=== PATIENT | female | born 1995 | race African-American/Black ===

== ENCOUNTER 2021-02-09 13:09 | Emergency (ER) | payer OTHER, SELFPAY ==
--- NOTE | ~2021-02-09 | XR_ITS ---
EXAMINATION: XR chest 2V DATE: 02/09/2021 13:32 INDICATION: Chest pain, shortness of breath and cough TECHNIQUE: PA and lateral views of the chest were obtained. COMPARISON: None FINDINGS: The lungs are clear with no focal airspace opacities, pulmonary edema, pleural effusion or pneumothor ax. The cardiomediastinal silhouette is normal. Visualized bones and soft tissues are unremarkable. IMPRESSION: 1. Normal chest radiograph. Reviewed, dictated and finalized at location A. ER SCREEN OPERATOR IMPRESSION: 1. Normal chest radiograph.
--- NOTE | 2021-02-09 13:13 | ECG_ITS ---
Measurements Intervals [place] Rate: 79 P: 55 IN: 140 QRS: 38 QRSD: 76 T: 8 QT: 347 QTc: 399 Interpretive Statements SINUS RHYTHM WITH SINUS ARRHYTHMIA NORMAL ECG Electronically Signed On 02-09-2021 13:37:35 OUTSIDE SALES REPRESENTATIVE by Howie Remy D.O.
[2021-02-09 13:15] VITALS: BP 120/79; PULSE 87; RESP 16; TEMP 37.4; O2SAT 97
[2021-02-09 13:41] LABS: Basophils Percent Auto 0.4 % (0.2-1.2); Eosinophils Absolute Auto 0.2 K/mm3 (0-0.3); Eosinophils Percent Auto 2.1 % (0-4.4); Hematocrit 41.4 % (37.0-47.0); Hemoglobin 13.4 g/dL (12.0-15.0); Immature Granulocyte Absolute 0.01 K/mm3 (0.00-0.031); Immature Granulocyte Percent A 0.1 % (0-0.5); Lymphocytes Absolute Auto 2.55 K/mm3 (0.9-3.2); Mean Corpuscular HGB Conc 32.4 g/dl (32-36); Mean Corpuscular Hemoglobin 29.1 pg (26-34); Mean Corpuscular Volume 89.8 fl (80-100); Mean Platelet Volume 9.5 fl (7.4-10.4); Monocytes Absolute Auto 0.4 K/mm3 (0.1-0.6); Monocytes Percent Auto 6.2 % (2.6-8.5); Neutrophils Absolute Auto 3.9 K/mm3 (1.3-6.7); Neutrophils Percent Auto 55.2 % (45.5-73.1); Platelet Count Result 276 k/mm3 (150-375); Red Blood Count 4.61 M/mm3 (4.2-5.4); Red Cell Distribution Width 12.8 % (11.5-14.5); White Blood Count 7.1 K/mm3 (4.5-10.0)
[2021-02-09 13:49] LABS: INR 1.1; Prothrombin Time 13.8 Seconds (11.1-14.7)
[2021-02-09 13:50] LABS: Partial Thromboplastin Time 27.4 SECONDS (22.3-36.8)
[2021-02-09 13:56] LABS: Alanine Aminotransferase 13 U/L (4-35); Alkaline Phosphatase 43 U/L (38-126); Anion Gap 9 mmol/L (8-16); Aspartate Amino Transferase 18 U/L (14-36); Bilirubin,Total 0.3 mg/dL (0.2-1.3); Blood Urea Nitrogen 11 mg/dL (7-17); Calcium 8.7 mg/dL (8.4-10.2); Carbon Dioxide 24 mmol/L (22-30); Chloride 104 mmol/L (98-107); Estimated CRCL calculation 111 ml/min; Estimated Glomerular Filt Rate > 60; Glucose 108 mg/dL (65-110); Lipase 38 U/L (23-300); Potassium 4.1 mmol/L (3.4-5.0); Sodium 137 mmol/L (137-145)
[2021-02-09 14:07] LABS: Troponin I < 0.012 ng/mL (0.000-0.034)
--- NOTE | 2021-02-09 14:30 | ED.CHESTPAIN ---
HPI - Chest Pain General Chief Complaint: Chest Pain Stated Complaint: INT CP [id number] CHEST PRESSURE TODAY Time Seen by Provider: 02/09/21 14:30 Source: patient Mode of arrival: ambulatory Limitations: no limitations History of Present Illness HPI narrative: Patient is a 26-year-old female complain of chest pain, substernal, 4 out of 10, indigestion , nonradiating, intermittent, started after drinking a mixed drink , approximately 3 weeks ago. Patient denies any shortness of breath, abdominal pain, nausea, vomiting, diaphoresis, fever or chills. Review of Systems Review of Systems: All systems reviewed & are unremarkable except as noted in HPI and below Constitutional: Constitutional: Denies body ache(s), Denies chills, Denies excessive sweating, Denies fatigue, Denies fever(s), Denies headache(s), Denies lethargy, Denies malaise, Denies weakness and Denies weight loss Eyes: Eyes: Denies blurry vision, Denies change in vision and Denies loss of vision ENT: Denies dizziness, Denies ear discharge, Denies headache(s), Denies lip swelling, Denies epistaxis, Denies nasal congestion, Denies neck pain, Denies throat swelling and Denies tongue swelling Cardiovascular: Cardiovascular: Denies diaphoresis, Denies rapid heart rate, Denies edema, Denies irregular heart rhythm, Denies lightheadedness, Denies palpitations, Denies dyspnea and Denies dyspnea on exertion Respiratory: Respiratory: Denies chest congestion, Denies cough, Denies hemoptysis, Denies dyspnea and Denies dyspnea on exertion Gastrointestinal: Gastrointestinal: Denies abdominal pain, Denies melena, Denies hematochezia, Denies diarrhea, Denies nausea, Denies vomiting and Denies hematemesis Musculoskeletal: Musculoskeletal: Denies abnormal gait, Denies deformity, Denies joint swelling, Denies limited range of motion, Denies neck pain and Denies numbness Neurologic: Denies Abnormal speech present, Denies abnormal gait, Denies confusion, Denies dizziness, Denies headache(s), Denies focal weakness, Denies loss of vision, Denies numbness, Denies Other visual disturbances, Denies Sensory deficit (Neuro) and Denies weakness Psychiatric: Psychiatric: Denies confusion, Denies depression, Denies auditory hallucinations, Denies homicidal ideation and Denies suicidal ideation Endocrine: Endocrine: Denies cold intolerance, Denies excessive sweating, Denies fatigue, Denies heat intolerance and Denies palpitations Hematologic/Lymphatic: Hematologic/Lymphatic: Denies easy bleeding and Denies easy bruising Allergic/Immunologic: Allergic/Immunologic: Denies lip swelling, Denies throat swelling and Denies tongue swelling PMFSH Comments Past medical history: None Family history: Positive for hypertension, diabetes Social history: Non-smoker no EtOH or drug use Exam Const: General: cooperative, healthy appearing, comfortable, no acute distress, well developed, alert and awake; No confusion Orientation/consciousness: oriented to person, oriented to place, oriented to time, patient oriented x3 and No confusion Limitations: no limitations HENMT: Head: normal to inspection, normocephalic and atraumatic Ears: hearing grossly normal bilaterally, TM normal on the right and TM normal on the left General nose exam: Normal external nose present, Normal nares present and No nasal discharge present Face and sinus: normal facial exam Mouth: Yes Normal oral and palatal mucosa present, Yes lip normal, Yes tongue normal and Yes oropharynx normal Throat: posterior oropharynx normal, tonsils normal and uvula midline Eyes: General: appearance normal, both eyes and all related structures Pupils: Equal, round and reactive pupils present EOM: EOMs intact bilaterally Neck: Neck: normal visual inspection, full ROM, no lymphadenopathy and no meningeal signs Chest: Chest palpation & inspection: normal inspection of the chest Resp: Effort & Inspection: normal respiratory effort, able to speak in complete sentences, no re
== END 2021-02-09 15:38 | disposition home or self-care (01) ==
PROVIDERS: Family Medicine; Emergency Provider Emergency Medicine
DX: R07.89 Other chest pain (principal); I10 Essential (primary) hypertension; E11.9 Type 2 diabetes mellitus without complications
CPT/HCPCS: 36415; 71046; 80053; 83690; 84484; 85025; 85610; 85730; 93005; 99284

== ENCOUNTER 2023-08-23 08:27 | Inpatient (IN) | payer OTHER, SELFPAY ==
[2023-08-23] VITALS (14 sets, daily range): BP systolic 101–160; BP diastolic 53–105; PULSE 50–94; RESP 12–22; TEMP 36.4–37.3; O2SAT 98–100
--- NOTE | ~2023-08-23 | XR_ITS ---
EXAMINATION: XR abdomen/kub 1V DATE: 08/24/2023 19:09 INDICATION: Abdominal pain. TECHNIQUE: A supine view of the abdomen on 2 radiographs was obtained. COMPARISON: CT abdomen and pelvis 08/23/2023 FINDINGS: There are no dilated loops of bowel. There is a small volume of stool in the colon. There i s a left internal ureteral stent in expected position. IMPRESSION: 1. Normal bowel gas pattern. 2. Left internal ureteral stent in expected position. Reviewed, dictated and finalized at location E.
--- NOTE | ~2023-08-23 | CT_ITS ---
EXAMINATION: CT abdomen pelvis w con DATE: 08/23/2023 09:55 INDICATION: Abdominal pain TECHNIQUE: Computed tomography (CT) of the abdomen and pelvis was performed with 100 mL Omnipaque-350 intravenous contrast. Automated exposure control and iterative reconstruction technique were employe d. The dose-length product was 1041.26 mGy-cm. COMPARISON: None FINDINGS: Minimal dependent atelectasis in bilateral lower lobes. Heart size is normal. No pericardial or pleur al effusion. Small sliding-type hiatal hernia. There is diffuse periportal edema at the liver. There is also a minimal amount of perihepatic ascites at the gallbladder fossa and between the liver and th e upper pole of the right kidney. The nondilated gallbladder appears otherwise unremarkable with no w all thickening or pericholecystic inflammatory stranding. Spleen, pancreas and bilateral adrenal glan ds are normal. 2 mm nonobstructing stone in a middle calyx of the normal-appearing right kidney. Ther e are couple 2-3 mm stones in a lower pole calyx of the left kidney along with a pair of additional 2 -3 mm obstructing stones at the left ureterovesicular junction. There is mild left hydroureteronephro sis with a delayed left nephrogram. There is also a small amount of left perinephric fluid. There is prominent scattered colonic diverticulosis without adjacent inflammatory stranding to suggest diverti culitis. Small bowel and retrocecal appendix are normal. Uterus and bilateral adnexa are unremarkable . No abscess or free intraperitoneal gas. No pathologically enlarged abdominal or pelvic lymphadenopa thy. IMPRESSION: 1. Bilateral nephrolithiasis with a pair of obstructing 2-3 mm stones at the left ureterovesicular ju nction with mild left hydronephrosis, small amount of perinephric fluid and delayed left nephrogram. 2. Nonspecific periportal edema the differential for which includes acute pyelonephritis which while not evident by CT imaging could be developing related to ascending urinary tract infection associated with the left hydroureteronephrosis. Correlate with urinalysis. Other causes for periportal edema wo uld include congestive heart failure, acute hepatitis, cholangitis or aggressive fluid resuscitation. Reviewed, dictated and finalized at location A. IMPRESSION: 1. Bilateral nephrolithiasis with a pair of obstructing 2-3 mm stones at the le ft ureterovesicular junction with mild left hydronephrosis, small amount of per inephric fluid and delayed left nephrogram. 2. Nonspecific periportal edema the differential for which includes acute pyelo nephritis which while not evident by CT imaging could be developing related to ascending urinary tract infection associated with the left hydroureteronephrosi s. Correlate with urinalysis. Other causes for periportal edema would include c ongestive heart failure, acute hepatitis, cholangitis or aggressive fluid resus citation.
--- NOTE | ~2023-08-23 | US_ITS ---
EXAMINATION: US abdomen limited DATE: 08/25/2023 07:42 INDICATION: Epigastric pain TECHNIQUE: Multiple grayscale and Doppler ultrasound images of the abdomen were obtained. COMPARISON: None FINDINGS: Pancreas is normal. Liver has normal echogenicity and contour, with a smooth surface. No liver lesion identified. No intrahepatic biliary duct dilation suspected. Portal venous flow was seen in the hepa topetal, normal direction and has normal Doppler waveform. The visualized proximal to mid inferior ve na cava is normal. The gallbladder is normal in appearance. There is no cholelithiasis. The common b ile duct is dilated to 13 mm. No evident choledocholithiasis although the region of the ampulla is pa rtially obscured by shadowing bowel gas. Sonographic Pineda sign was reported as negative by the sono grapher. IMPRESSION: 1. Dilation of the common bile duct to 13 mm but without evident cholelithiasis/choledocholithiasis. Correlate with liver function tests and could consider further evaluation with MRCP as clinically ind icated. Reviewed, dictated and finalized at location A. IMPRESSION: 1. Dilation of the common bile duct to 13 mm but without evident cholelithiasis /choledocholithiasis. Correlate with liver function tests and could consider fu rther evaluation with MRCP as clinically indicated.
--- NOTE | ~2023-08-23 | XR_ITS ---
EXAMINATION: XR stent kub - surgery DATE: 08/23/2023 14:46 INDICATION: Left internal ureteral stent placement TECHNIQUE: Fluoroscopic images from a left internal ureteral stent placement are submitted for review . 15 seconds of fluoroscopy time. 3 fluoroscopic images. FINDINGS: There is a left double-J internal ureteral stent projecting in expected position, with proximal Thornton loop at the level of the renal pelvis and distal loop in the pelvis within the bladder lumen. IMPRESSION: 1. Left internal ureteral stent placement. Please refer to real-time procedural findings for detail s. Reviewed, dictated and finalized at location B. IMPRESSION: 1. Left internal ureteral stent placement. Please refer to real-time procedur al findings for details.
--- NOTE | 2023-08-23 08:38 | ED.ABDPAIN ---
HPI - Abdominal Pain General Chief Complaint: Abdominal Pain Stated Complaint: abd pain Time Seen by Provider: 08/23/23 08:37 History of Present Illness HPI narrative: 28 years old female came to the emergency room by ambulance from home with left flank pain radiating to left lower quadrant wake her up from sleep this morning associated with nausea and frequent vomiting. Patient denies any fever or chills urinary symptoms or vaginal bleeding or discharge. No history of abdominal surgery, Patient denies aggravating or relieving factors. Related Data Allergies Allergy/AdvReac Type Severity Reaction Status Date / Time No Known Allergies Allergy Verified 08/23/23 08:35 Review of Systems Review of Systems: All systems reviewed & are unremarkable except as noted in HPI and below Exam Narrative: General appearance: Well-developed, well-nourished, restless Skin: Normal color Head: Normocephalic, nontraumatic Eyes: Clear conjunctiva ENT: Oropharynx normal, ears normal, nose normal Neck: Supple, nontender Chest and respiratory: Airway patent, no respiratory distress, no accessory muscle use Heart: Regular rate/rhythm Abdomen: Soft, mild diffuse tenderness left flank area, no guarding rebound,, no organomegaly, quiet bowel sounds Vascular: Normal peripheral pulses, normal capillary refill. Musculoskeletal: Normal range of motion, nontender back Neurologic: Alert and oriented ?3, RESOURCE PARAPROFESSIONAL is normal as tested, no gross motor deficit Course Consultations Consultation #1: DR MENDES HE WILL COME TO PICK THE PATIENT UP TO REMOVE THE STONE. Date: 08/23/23 Time: 11:02 Vital Signs Vital signs: Vital Signs Temperature 36.4 C L 08/23/23 08:27 Pulse Rate 50 L 08/23/23 08:27 Respiratory Rate 16 08/23/23 08:27 Blood Pressure 160/105 H 08/23/23 08:27 Pulse Oximetry 99 08/23/23 08:27 Oxygen Delivery Room Air 08/23/23 08:27 Temperature 36.4 C L 08/23/23 08:27 Pulse Rate 88 08/23/23 10:05 Respiratory Rate 16 08/23/23 10:05 Blood Pressure 122/83 08/23/23 10:05 Pulse Oximetry 98 08/23/23 10:05 Oxygen Delivery Room Air 08/23/23 08:27 MDM - Abdominal Pain MDM Narrative Medical decision making narrative: Differential diagnosis pyelonephritis, kidney stone, constipation, colitis, diverticulitis, Blood workup today showed insignificant abnormality, urinalysis showed 1+ leukocyte Estrace, positive blood, WBC of 20 1-50, 3+ urine bacteria. The urinalysis indicating infection CT abdomen and pelvis with IV contrast showed 2-3 mm obstructing stone at the left UVJ with mild hydronephrosis, findings consistent with acute pyelonephritis In the ED patient received morphine and Zofran without significant improvement IV DILAUDID, P.O. FLOMAX ORDERED.. Patient started on Rocephin for UTI, Admit to hospitalist, discussed with DR MENDES. Differential Diagnosis Differential diagnosis: Likely other ( ABOVE) Medical Records Attestation: I reviewed the patient's medical records. Lab Data Attestation: I reviewed the patient's lab results. 08/23/23 08:45 08/23/23 08:45 Labs: Lab Results 08/23/23 08/23/23 Range/Units 08:45 09:37 WBC 7.3 (4.5-10.0) K/mm3 RBC 4.42 (4.2-5.4) M/mm3 Hgb 13.1 (12.0-15.0) g/dL Hct 40.2 (37.0-47.0) % MCV 91.0 (80-100) fl MCH 29.6 (26-34) pg MCHC 32.6 (32-36) g/dl RDW 12.0 (11.5-14.5) % Plt Count 317 (150-375) k/mm3 MPV 9.3 (7.4-10.4) fl Immature Gran % (Auto) 0.1 (0-0.5) % Neut % (Auto) 55.0 (45.5-73.1) % Lymph % (Auto) 35.3 (18.3-44.2) % [place] % (Auto) 5.9 (2.6-8.5) % Eos % (Auto) 3.3 (0-4.4)
--- NOTE | 2023-08-23 08:40 | PC.NURSE ---
Patient refusing to be placed in gown.
[2023-08-23] MEDS: MORPHINE SULFATE (*CRX) 4 MG/ML INJ IV PUSH (08:46)
[2023-08-23] MEDS: SODIUM CHLORIDE 0.9% IV 1,000 ML 999 ML IV CONT (08:46)
[2023-08-23] MEDS: ONDANSETRON INJ 4 MG/2 ML VIAL IV PUSH (08:47)
[2023-08-23 08:50] LABS: Basophils Percent Auto 0.4 % (0.2-1.2); Eosinophils Absolute Auto 0.2 K/mm3 (0-0.3); Eosinophils Percent Auto 3.3 % (0-4.4); Hematocrit 40.2 % (37.0-47.0); Hemoglobin 13.1 g/dL (12.0-15.0); Immature Granulocyte Absolute 0.01 K/mm3 (0.00-0.031); Immature Granulocyte Percent A 0.1 % (0-0.5); Lymphocytes Absolute Auto 2.56 K/mm3 (0.9-3.2); Lymphocytes Percent Auto 35.3 % (18.3-44.2); Mean Corpuscular HGB Conc 32.6 g/dl (32-36); Mean Corpuscular Hemoglobin 29.6 pg (26-34); Mean Platelet Volume 9.3 fl (7.4-10.4); Monocytes Absolute Auto 0.4 K/mm3 (0.1-0.6); Monocytes Percent Auto 5.9 % (2.6-8.5); Platelet Count Result 317 k/mm3 (150-375); Red Blood Count 4.42 M/mm3 (4.2-5.4); White Blood Count 7.3 K/mm3 (4.5-10.0)
[2023-08-23 09:04] LABS: Alanine Aminotransferase 14 U/L (6-35); Albumin Level 4.4 g/dL (3.5-5.1); Alkaline Phosphatase 51 U/L (38-126); Anion Gap 14 mmol/L (4-12); Aspartate Amino Transferase 17 U/L (14-36); Bilirubin,Total 0.3 mg/dL (0.2-1.3); Blood Urea Nitrogen 15 mg/dL (7-17); Calcium 8.9 mg/dL (8.4-10.2); Carbon Dioxide 21 mmol/L (22-30); Chloride 107 mmol/L (98-107); Estimated CRCL calculation 96 ml/min; Estimated Glomerular Filt Rate > 60; Glucose 145 mg/dL (65-110); Lipase 66 U/L (23-300); Potassium 3.6 mmol/L (3.4-5.0); Sodium 142 mmol/L (137-145)
[2023-08-23 09:52] LABS: Appearance Urine Clear (Clear); Bacteria Urine 3+ /hpf; Bilirubin Urine Negative (Negative); Blood Urine 3+ (Negative); Color Urine Yellow (Yellow); Glucose Urine UA Negative (Negative); Ketones Urine Negative (Negative); Leukocyte Esterase Ur 1+ LEU/UL (Negative); Nitrate Urine Negative (Negative); Non Pathogenic Casts 0-2; Protein Urine 1+ mg/dL (Negative); RBC Urine 51-100 /hpf (0-2); Specific Grav Ur 1.024 (1.001-1.035); Squamous Epithelial Cell Urine Occasional /hpf (Few); Urobilinogen Urine 0.2 mg/dL (<2.0); WBC Urine 21-50 /hpf (0-3); pH Urine 5.5 (5.0-9.0)
[2023-08-23 10:01] LABS: Add Urine Microscopic? YES
[2023-08-23] MEDS: HYDROmorphone HCL INJ (*CRX) 1 MG/ML SYR 0.5 MG IV PUSH (11:02)
[2023-08-23] MEDS: TAMSULOSIN HCL 0.4 MG CAPSULE PO (11:02)
--- NOTE | 2023-08-23 13:50 | WPDANESEPPF ---
Anes - Initial Pre Proc Eval Procedure: Operation Date: 08/23/23 14:45 Proposed Procedures p Cystoscopy,Left Ureteroscopy,Left Stone Extraction,Left Stent Placement - Bryn Grire MD Date/Time: 08/23/23 13:50 Surgeon: Isi Ring MD Pre Op Diagnosis: left kidney stone,acute pyelonephritis Patient Data Age: 28 Gender: F Height: 1.63 m Weight: 102.3 kg Last Vital Signs Temp 37.3 C 08/23/23 13:05 Pulse 91 08/23/23 13:05 Resp 14 08/23/23 13:05 BP 120/64 08/23/23 13:05 Pulse Ox 100 08/23/23 13:05 O2 Del Method Room Air 08/23/23 13:05 Allergies Allergy/AdvReac Type Severity Reaction Status Date / Time No Known Allergies Allergy Verified 08/23/23 08:35 Home Medications Medication Instructions Recorded Confirmed Type No Home Medications 08/23/23 08/23/23 History Laboratory Tests 08/23/23 08/23/23 08:45 09:37 WBC 7.3 K/mm3 (4.5-10.0) RBC 4.42 M/mm3 (4.2-5.4) Hgb 13.1 g/dL (12.0-15.0) Hct 40.2 % (37.0-47.0) MCV 91.0 fl (80-100) MCH 29.6 pg (26-34) MCHC 32.6 g/dl (32-36) RDW 12.0 % (11.5-14.5) Plt Count 317 k/mm3 (150-375) MPV 9.3 fl (7.4-10.4) Immature Gran % (Auto) 0.1 % (0-0.5) Neut % (Auto) 55.0 % (45.5-73.1) Lymph % (Auto) 35.3 % (18.3-44.2) [place] % (Auto) 5.9 % (2.6-8.5) Eos % (Auto) 3.3 % (0-4.4) Baso % (Auto) 0.4 % (0.2-1.2) Lymph # (Auto) 2.56 K/mm3 (0.9-3.2) [place] # (Auto) 0.4 K/mm3 (0.1-0.6) Eos # (Auto) 0.2 K/mm3 (0-0.3) Baso # (Auto) 0.0 K/mm3 (0.0-0.1) Abs Immat Gran (auto) 0.01 K/mm3 (0.00-0.031) Absolute Neuts (auto) 4.0 K/mm3 (1.3-6.7) Absolute Nucleated RBC 0.000 K/mm3 (0.0-0.012) Nucleated RBC % 0.0 % (0.0-0.2) Sodium 142 mmol/L (137-145) Potassium 3.6 mmol/L (3.4-5.0) Chloride 107 mmol/L (98-107) Carbon Dioxide 21 L mmol/L (22-30) Anion Gap 14 H mmol/L (4-12) BUN 15 mg/dL (7-17) Creatinine 0.90 mg/dL (0.7-1.0) Estim Creat Clear Calc 96 ml/min Estimated GFR > 60 (59 - ) Glucose 145 H mg/dL (65-110) Calcium 8.9 mg/dL (8.4-10.2) Total Bilirubin 0.3 mg/dL (0.2-1.3) AST 17 U/L (14-36) ALT 14 U/L (6-35) Alkaline Phosphatase 51 U/L (38-126) Total Protein 8.0 g/dL (6.3-8.2) Albumin 4.4 g/dL (3.5-5.1) Lipase 66 U/L (23-300) Urine Color Yellow (Yellow) Urine Appearance Clear (Clear) Urine pH 5.5 (5.0-9.0) Ur Specific [place] 1.024 (1.001-1.035) Urine Protein 1+ H mg/dL (Negative) Urine Glucose (UA) Negative mg/dL (Negative) Urine Ketones Negative mg/dL (Negative) Ur Blood (Man) 3+ H (Negative) Urine Nitrate Negative (Negative) Urine Bilirubin Negative (Negative) Urine Urobilinogen 0.2 mg/dL (<2.0) Leukocyte Esterase Rfl 1+ H ALEN/UL (Negative) Urine RBC 51-100 H /hpf (0-2) Urine WBC 21-50 H /hpf (0-3) Ur Squamous Epith Cells Occasional /hpf (Few) Urine Bacteria 3+ H /hpf Urine Casts 0-2 Patient hx anesthesia problems: none Family hx anesthesia problems: none Results Review: All pre-operative results and documents have been reviewed as part of the pre-operative evaluation. Anes - Eval Final PreProcedure Day of Procedure 08/23/23 13:50 Patient weight: obese Heart: regular rate and rhythm Lungs: clear to auscultation Airway: Mallampati scale class II Neurological: alert and oriented Last oral intake: >/= 8 hours ASA classification: II Emergent: no Anesthetic plan: proceed Anesthesia type and monitoring: general LMA and standard monitoring Results Review: All pre-operative results and documents have been reviewed
--- NOTE | 2023-08-23 14:12 | WPDURCON ---
Assessment and Plan Assessment and plan (1) Kidney stone on left side: Code(s): N20.0 - Calculus of kidney Status: Acute (2) Pyelonephritis: Code(s): N12 - Tubulo-interstitial nephritis, not specified as acute or chronic Status: Acute Assessment and Plan: Cystoscopy, left ureteral stent placement, possible retrograde pyelography and ureteral stone extraction Urology Consult Note HPI Date Seen: 08/23/23 Requesting Physician: Isi Ring MD Primary Care Provider: UNKNOWN,DOCTOR Consult Narrative Narrative: Antonio Ellington is a 28 year old female without history of urolithiasis or other urological problems who presents to the emergency department with acute severe left flank pain radiating to her left lower quadrant. She has had nausea with vomiting. Her urinalysis appears infected. Imaging shows to contiguous small stones in her distal left ureter. She has been admitted for IV antibiotics and we will plan cystoscopy with left ureteral stent placement, left ureteroscopy with stone extraction if it appears simple and she is stable. We will also place left ureteral stent and may do left retrograde pyelography. She is aware the risks including, but not limited to, progression in her infection, need for additional procedures. Review of Systems Review of Systems: All systems reviewed & are unremarkable except as noted in HPI and below Meds Home Medications and Allergies Home Medications Medication Instructions Recorded Confirmed Type No Home Medications 08/23/23 08/23/23 History Allergies Allergy/AdvReac Type Severity Reaction Status Date / Time No Known Allergies Allergy Verified 08/23/23 08:35 Vital Signs Vital Signs - 24 hr 08/23/23 08:27 08/23/23 10:05 08/23/23 12:24 Temperature 97.5 F L Pulse Rate 50 L 88 94 Respiratory Rate 16 16 16 Blood Pressure 160/105 H 122/83 136/90 Pulse Oximetry 99 98 99 Oxygen Delivery Room Air 08/23/23 13:05 Temperature 99.2 F Pulse Rate 91 Respiratory Rate 14 Blood Pressure 120/64 Pulse Oximetry 100 Oxygen Delivery Room Air Exam Const: General: no acute distress Resp: Effort & Inspection: normal respiratory effort GI: Inspection: non-distended GI Palp: No abdominal tenderness and No Guarding due to palpation present (GI) Auscultation: normal bowel sounds Results Labs 08/23/23 08:45 08/23/23 08:45 Labs: Short CBC 08/23/23 Range/Units 08:45 WBC 7.3 (4.5-10.0) K/mm3 Hgb 13.1 (12.0-15.0) g/dL Hct 40.2 (37.0-47.0) % Plt Count 317 (150-375) k/mm3 BMP 08/23/23 08:45 Sodium 142 Potassium 3.6 Chloride 107 Carbon Dioxide 21 L BUN 15 Creatinine 0.90 Glucose 145 H Calcium 8.9 Liver Function 08/23/23 Range/Units 08:45 Total Bilirubin 0.3 (0.2-1.3) mg/dL AST 17 (14-36) U/L ALT 14 (6-35) U/L Alkaline Phosphatase 51 (38-126) U/L Albumin 4.4 (3.5-5.1) g/dL Urine 08/23/23 Range/Units 09:37 Urine Color Yellow (Yellow) Urine Appearance Clear (Clear) Urine pH 5.5 (5.0-9.0) Ur Specific [place] 1.024 (1.001-1.035) Urine Protein 1+ H (Negative) mg/dL Urine Glucose (UA) Negative (Negative) mg/dL
--- NOTE | 2023-08-23 14:14 | WPDHPUPDATE1 ---
History and Physical Update Update Date/Time: 08/23/23 14:14 History and Physical has been reviewed, including an updated exam of the patient. There are NO changes in the patient's condition. Risks, benefits, and alternatives have been discussed and questions answered. Patient agrees to proceed with procedure.
[2023-08-23] MEDS: KETOROLAC 30 MG/ML VIAL (*BKC) IV PUSH (14:42)
--- NOTE | 2023-08-23 14:50 | P.OP_ITS ---
Procedure Note - Detailed Date of Procedure 08/23/23 Pre-op Diagnosis Left ureteral stones, acute pyelonephritis Post-op Diagnosis Same Procedure Performed Cystoscopy, left ureteroscopy with ureteral stone extraction, left ureteral stent placement Surgeon Bryn Grier MD Anesthesia General Description of Procedure Patient is brought to the operative suite where she was prepped and draped in routine sterile fashion while in dorsal lithotomy position after the uneventful induction of a general LMA anesthetic. Cystoscopy was undertaken with a the F rigid cystoscope. Bladder neck and urethra endoscopically normal. Bladder mucosa is normal without hyperemia. There was no intravesical foreign body ne oplasm. She has a single orthotopic ureteral orifice bilaterally. A 0.035 in glidewire was advanced into her left renal pelvis under fluoroscopy. The distal ureter was dilated with an 8 F 10 F dilator. Ureteroscopy was undertaken with a short tapered semi-rigid ureteral scope. Her 2 stones in the distal ureter were extracted separately with ease using a 1.9 F disposable escape basket. Because of her ongoing infection I opted to place a 4.8 F variable length stent over the wire. Proximal coil was positioned in the renal pelvis and distal coil in the bladder. Scopes and wires removed she was taken recovery in good condition. Drains Yes Packing No Pathology Yes Complications No immediate complications Condition Stable Disposition PACU
[2023-08-23] MEDS: LACTATED RINGERS 1,000 ML 30 ML IV CONT (14:51)
--- NOTE | 2023-08-23 15:05 | PM.IMHP ---
H&P: HPI History of Present Illness Date/Time: 08/23/23 15:05 Chief Complaint: Left flank pain, nausea, vomiting Narrative: This is a 28-year-old female with no significant past medical history who presented to the hospital with left flank pain radiating to left lower quadrant of the abdomen with associated nausea and vomiting. Workup in the hospital includes CT of the abdomen pelvis with contrast showed bilateral nephrolithiasis with a pair of obstructing 2-3 mm stones at the left ureterovesical junction with mild left hydronephrosis, nonspecific periportal edema likely representing acute pyelonephritis. Initial labs were essentially unremarkable. A UA was obtained and showed 1+ urine protein, 3+ urine blood, 1+ leukocyte, 21-50 urine WBC, 3+ bacteria. Urine culture was obtained and is pending. She was given 1 L normal saline, morphine, Zofran, Dilaudid, Flomax while in the ED. she was also started on Rocephin. Urology was consulted and took patient to the OR for left ureteral stent placement. At the time of my exam, she is on the floor after being received from the PACU. Patient states that her symptoms started in the middle of the night and she stated that she had a bout of diarrhea which she attributed to possible food poisoning. She states she fell back asleep after the diarrhea and then woke up around 7 this morning in excruciating pain in her left flank with associated nausea and vomiting. She states that the pain was so bad that she blacked out for a few minutes and her called 911 and she was transported to the hospital via EMS. Patient denies any fever, chills, nausea, vomiting, diarrhea, abdominal pain, chest pain, shortness a breath. Patient states pain is well controlled after her procedure. Review of Systems Review of Systems: All systems reviewed & are unremarkable except as noted in HPI and below Constitutional: Constitutional: Reports as per HPI and Reports no additional constitutional complaints Eyes: Eyes: Reports as per HPI and Reports no additional eye complaints ENT: Reports system reviewed and no additional complaints, except as documented and Reports as per HPI Cardiovascular: Cardiovascular: Reports as per HPI and Reports no additional cardiovascular complaints Respiratory: Respiratory: Reports as per HPI and Reports no additional respiratory complaints Gastrointestinal: Gastrointestinal: Reports as per HPI and Reports no additional gastrointestinal complaints Genitourinary: Genitourinary: Reports no additional female genitourinary complaints and Reports as per HPI Musculoskeletal: Musculoskeletal: Reports no additional musculoskeletal complaints and Reports as per HPI Integumentary/Breasts: Skin/Breast: Reports system reviewed and no additional complaints, except as docu and Reports as per HPI Neurologic: Reports system reviewed and no additional complaints, except as documented and Reports as per HPI Psychiatric: Psychiatric: Reports no additional psychiatric complaints and Reports as per HPI [facility] Social History Social History (Updated 08/23/23 @ 16:55 by Tuyet Christianson, CARLYLE) Social History: Has 2 kids Lives with Smoking status: Never smoker Alcohol intake: former Drinks per week: 1 Substance use: never Substance use type: marijuana Do You Feel Safe in your Home?: Yes Lack of Transportation: No Lack of Food: Never True Current Housing: I Have Housing Concerned About Future Housing: No Difficulty Paying Gas/Electric Bills: No Difficulty Paying for Meds: No Currently Unemployed: No Education: Don't Know Difficulty w/ Childcare or Family Care: No Spiritual care concerns: No Meds Home Medications and Allergies Home Medications Medication Instructions Recorded Confirmed Type No Home Medications 08/23/23 08/23/23 History Allergies Allergy/AdvReac Type Severity Reaction Status Date / Time latex Allergy Itching Verified 08/23/23 16
[2023-08-23] MEDS: SODIUM CHLORIDE 0.9% IV 1,000 ML 125 ML IV CONT (16:20)
--- NOTE | 2023-08-23 16:37 | ADMGEN ---
This patient, Antonio Ellington, was admitted to [facility] Surg Room 311-01. Patient/family oriented to hospital policies and general routines including ID bracelet, bed and alarms, visiting hours, pain management, procedures, bathroom and other care routines, personal items, smoking policy, room service/diet, and visiting hours. Information on how to activate the Rapid Response Team has been discussed. Patient/Family are encouraged to report perceived risks to care and to ask questions if they do not understand what they are told or what they should do. Report from [facility] in pacu.
[2023-08-23] MEDS: ACETAMINOPHEN 325 MG TABLET 650 MG PO (20:00)
[2023-08-24] VITALS: BP 127/73; PULSE 57; RESP 18; TEMP 36.9; O2SAT 100
[2023-08-24] MEDS: HYDROcodone/acetaminophen (*CRX) 5-325 MG TABLET 1 TAB PO ×3 (00:13→13:21)
[2023-08-24] MEDS: ONDANSETRON INJ 4 MG/2 ML VIAL IV PUSH (00:15)
[2023-08-24 04:00] VITALS: BP 145/82; PULSE 100; RESP 16; TEMP 36.5; O2SAT 99
[2023-08-24 06:06] LABS: Basophils Percent Auto 0.1 % (0.2-1.2); Eosinophils Percent Auto 0.1 % (0-4.4); Hematocrit 36.2 % (37.0-47.0); Hemoglobin 11.9 g/dL (12.0-15.0); Immature Granulocyte Absolute 0.09 K/mm3 (0.00-0.031); Immature Granulocyte Percent A 0.5 % (0-0.5); Lymphocytes Absolute Auto 1.57 K/mm3 (0.9-3.2); Lymphocytes Percent Auto 9.1 % (18.3-44.2); Mean Corpuscular HGB Conc 32.9 g/dl (32-36); Mean Corpuscular Hemoglobin 30.1 pg (26-34); Mean Corpuscular Volume 91.4 fl (80-100); Mean Platelet Volume 9.9 fl (7.4-10.4); Monocytes Absolute Auto 0.9 K/mm3 (0.1-0.6); Monocytes Percent Auto 5.3 % (2.6-8.5); Neutrophils Absolute Auto 14.6 K/mm3 (1.3-6.7); Neutrophils Percent Auto 84.9 % (45.5-73.1); Platelet Count Result 256 k/mm3 (150-375); Red Blood Count 3.96 M/mm3 (4.2-5.4); Red Cell Distribution Width 12.2 % (11.5-14.5); White Blood Count 17.2 K/mm3 (4.5-10.0)
[2023-08-24 06:19] LABS: Anion Gap 10 mmol/L (4-12); Blood Urea Nitrogen 13 mg/dL (7-17); Calcium 8.8 mg/dL (8.4-10.2); Carbon Dioxide 22 mmol/L (22-30); Chloride 106 mmol/L (98-107); Estimated CRCL calculation 107 ml/min; Estimated Glomerular Filt Rate > 60; Glucose 104 mg/dL (65-110); Potassium 3.6 mmol/L (3.4-5.0); Sodium 138 mmol/L (137-145)
--- NOTE | 2023-08-24 06:47 | WPDUROPN2 ---
Progress Note: A&P Assessment and Plan (1) Pyelonephritis: Code(s): N12 - Tubulo-interstitial nephritis, not specified as acute or chronic Status: Acute (2) Kidney stone on left side: Code(s): N20.0 - Calculus of kidney Status: Acute Assessment and Plan: Feeling much better but notable spike in leukocytosis following stone intervention (as expected). Continue Ceftriaxone pending cultures. Stent removal 7-10 days as outpatient. Subjective Subjective Date/Time Seen: 08/24/23 06:47 Interval history: Comfortable, feeling MUCH better Review of Systems Cardiovascular: Cardiovascular: Denies chest pain, Denies lightheadedness, Denies palpitations and Denies dyspnea Respiratory: Respiratory: Denies dyspnea Gastrointestinal: Gastrointestinal: Denies diarrhea, Denies nausea and Denies vomiting Genitourinary: Genitourinary: Denies hematuria and Denies dysuria Endocrine: Endocrine: Denies palpitations Exam Const: General: no acute distress Resp: Effort & Inspection: normal respiratory effort GI: Inspection: non-distended GI Palp: No abdominal tenderness and No Guarding due to palpation present (GI) Auscultation: normal bowel sounds Objective Data Vital Signs Vital Signs: Vital Signs - 24 hr 08/23/23 08:27 08/23/23 10:05 08/23/23 12:24 Temperature 97.5 F L Pulse Rate 50 L 88 94 Respiratory Rate 16 16 16 Blood Pressure 160/105 H 122/83 136/90 Pulse Oximetry 99 98 99 Oxygen Delivery Room Air Oxygen Flow Rate 08/23/23 13:05 08/23/23 14:51 08/23/23 15:00 Temperature 99.2 F 98.3 F Pulse Rate 91 86 72 Respiratory Rate 14 22 H 18 Blood Pressure 120/64 122/67 101/66 Pulse Oximetry 100 100 100 Oxygen Delivery Room Air Simple Face Mask Simple Face Mask Oxygen Flow Rate 10 10 08/23/23 15:15 08/23/23 15:29 08/23/23 15:45 Temperature Pulse Rate 61 61 60 Respiratory Rate 16 14 12 Blood Pressure 105/53 L 113/53 L 105/61 Pulse Oximetry 98 98 100 Oxygen Delivery Room Air Room Air Room Air Oxygen Flow Rate 08/23/23 16:10 08/23/23 16:25 08/23/23 16:55 Temperature 98.1 F 98.5 F 97.8 F Pulse Rate 50 L 51 L 52 L Respiratory Rate 14 14 14 Blood Pressure 129/78 127/80 140/79 Pulse Oximetry 100 99 99 Oxygen Delivery Oxygen Flow Rate 08/23/23 17:55 08/23/23 20:00 08/24/23 00:00 Temperature 98.0 F 97.6 F 98.4 F Pulse Rate 72 78 57 L Respiratory Rate 14 18 18 Blood Pressure 119/90 129/74 127/73 Pulse Oximetry 100 98 100 Oxygen Delivery Oxygen Flow Rate 08/24/23 04:00 Temperature 97.7 F Pulse Rate 100 Respiratory Rate 16 Blood Pressure 145/82 H Pulse Oximetry 99 Oxygen Delivery Oxygen Flow Rate Intake/Output Intake/Output: Intake & Output 08/21/23 08/22/23 08/23/23 08/24/23 23:59 23:59 23:59 23:59 Intake Total 2123.3 Output Total 800 Balance 1323.3 Meds/Results Medications: Active Medications Generic Name Dose Route Start Last Admin Trade Name Freq PRN Reason Stop Dose Admin Acetaminophen 650 mg 08/23/23 15:21 08/23/23 20:00 Acetaminophen 325 Mg Tablet PO 650 mg Q4H PRN Administration Mild Pain (1-3) or Fever Hydrocodone Bitart/Acetaminophen 1 tab 08/23/23 15:21 08/24/23 00:13 Hydrocodone/Acetaminophen (*Crx) 5-325 Mg Tablet PO 1 tab Q4H PRN Administration Moderate Pain (4-6) Fentanyl Citrate 25 mcg 08/23/23 13:55 Fentanyl Citrate Inj (*Crx) 100 Mcg/2 Ml Vial IV PUSH Q2M PRN Pain Hydromorphone HCl 0.5 mg 08/23/23 11:21 Hydromorphone Hcl Inj (*Crx) 1 Mg/Ml Syr IV PUSH Q4H PRN Pain Rated 7-10 Ceftriaxone Sodium 1 gm in 50 mls @ 100 mls/hr 08/23/23 11:00 08/23/23 12:20 Rocephin 1 Gm/Ns 50 Ml IVPB Infused Q24H URBANO Infusion Morphine Sulfate 2 mg 08/23/23 15:21 Morphine Sulfate (*Crx) 2 Mg/Ml Inj IV PUSH Q4H PRN Pain Rated 7-10 Ondansetron HCl 4 mg 08/23/23 11:21 08/24/23 00:15 Ondansetron Inj 4 Mg/2
--- NOTE | 2023-08-24 07:40 | P.PNAN_ITS ---
Anes - Prog Note Post-Op Date/Time: 08/24/23 07:40 Cardiovascular status: normal Respiratory status: normal Airway patency: baseline Mental status: baseline Post-Op hydration status: normal Vital Signs: Last Vital Signs Temp 36.5 C 08/24/23 04:00 Pulse 100 08/24/23 04:00 Resp 16 08/24/23 04:00 BP 145/82 H 08/24/23 04:00 Pulse Ox 99 08/24/23 04:00 O2 Del Method Room Air 08/23/23 15:45 O2 Flow Rate 10 08/23/23 15:00 Pain Score (VAS): 05/22 I/O: Intake & Output 08/23/23 08/23/23 08/24/23 15:59 23:59 07:59 Intake Total 1050 1073.3 300 Output Total 400 400 Balance 650 673.3 300 Laboratory Tests 08/24/23 05:45 08/24/23 05:45 08/23/23 08/23/23 08/24/23 08:45 09:37 05:45 WBC 7.3 17.2 H RBC 4.42 3.96 L Hgb 13.1 11.9 L Hct 40.2 36.2 L MCV 91.0 91.4 MCH 29.6 30.1 MCHC 32.6 32.9 RDW 12.0 12.2 Plt Count 317 256 MPV 9.3 9.9 Immature Gran % (Auto) 0.1 0.5 Neut % (Auto) 55.0 84.9 H Lymph % (Auto) 35.[address] [place] % (Auto) 5.9 5.3 Eos % (Auto) 3.3 0.1 Baso % (Auto) 0.4 0.1 L Lymph # (Auto) 2.[address] 1.57 [place] # (Auto) 0.4 0.9 H Eos # (Auto) 0.2 0.0 Baso # (Auto) 0.0 0.0 Abs Immat Gran (auto) 0.01 0.09 H Absolute Neuts (auto) 4.0 14.6 H Absolute Nucleated RBC 0.000 0.000 Nucleated RBC % 0.0 0.0 Sodium 142 138 Potassium 3.6 3.6 Chloride 107 106 Carbon Dioxide 21 L 22 Anion Gap 14 H 10 BUN 15 13 Creatinine 0.90 0.80 Estim Creat Clear Calc 96 107 Estimated GFR > 60 > 60 Glucose 145 H 104 Calcium 8.9 8.8 Total Bilirubin 0.3 AST 17 ALT 14 Alkaline Phosphatase 51 Total Protein 8.0 Albumin 4.4 Lipase 66 Urine Color Yellow Urine Appearance Clear Urine pH 5.5 Ur Specific [place] 1.024 Urine Protein 1+ H Urine Glucose (UA) Negative Urine Ketones Negative Ur Blood (Man) 3+ H Urine Nitrate Negative Urine Bilirubin Negative Urine Urobilinogen 0.2 Leukocyte Esterase Rfl 1+ H Urine RBC 51-100 H Urine WBC 21-50 H Ur Squamous Epith Cells Occasional Urine Bacteria 3+ H Urine Casts 0-2 Post-procedural complaints: none Patient Feedback: Patient satisfied with anesthetic care.
[2023-08-24 08:00] VITALS: BP 138/84; PULSE 70; RESP 16; TEMP 36.4; O2SAT 100
--- NOTE | 2023-08-24 13:02 | PM.DS ---
DS: Summary Hospital Course Hospital Course: we will give 2grams of ceftriaxone before discharging patient today, Hospitalist office will follow up on urine culture. Time Spent with Patient Time attestation: Total time spent providing and/or coordinating discharge services: DS: Data Data Completed and Pending Pending studies at discharge: Pending at discharge 08/23/23 14:45 Surgical [PTH] Routine Labs on day of discharge: Labs from last 24 hours 08/24/23 05:45 WBC 17.2 H RBC 3.96 L Hgb 11.9 L Hct 36.2 L MCV 91.4 MCH 30.1 MCHC 32.9 RDW 12.2 Plt Count 256 MPV 9.9 Immature Gran % (Auto) 0.5 Neut % (Auto) 84.9 H Lymph % (Auto) 9.1 L [place] % (Auto) 5.3 Eos % (Auto) 0.1 Baso % (Auto) 0.1 L Lymph # (Auto) 1.57 [place] # (Auto) 0.9 H Eos # (Auto) 0.0 Baso # (Auto) 0.0 Abs Immat Gran (auto) 0.09 H Absolute Neuts (auto) 14.6 H Absolute Nucleated RBC 0.000 Nucleated RBC % 0.0 Sodium 138 Potassium 3.6 Chloride 106 Carbon Dioxide 22 Anion Gap 10 BUN 13 Creatinine 0.80 Estim Creat Clear Calc 107 Estimated GFR > 60 Glucose 104 Calcium 8.8 Discharge Plan Discharge Attending physician on discharge: Isi Ring Consulting providers: Bryn Grier Discharging Clinician: Linh Carreon Activity: as tolerated Diet: heart healthy Discharge Instructions: patient to follow up with her urologist in 2 weeks, patient to follow up with her primary care provider as soon as possible, patient is instructed if any symptoms redevelop or worsen to go nearest ER. Patient Instructions: Antibiotic Form Stand Alone Forms: General Discharge Information Follow-up/Referrals: Bryn Grier MD [Physician] - UNKNOWN,DOCTOR [Primary Care Provider] - Discharge Medications: New hydrocodone-acetaminophen 5-325 mg Tablet 1 tablet PO Q4H PRN (Reason: Moderate Pain (4-6)) Qty: 10 0RF cefdinir 300 mg capsule 300 mg PO Q12H Qty: 20 0RF ondansetron 4 mg tablet,disintegrating 4 mg PO Q8H PRN (Reason: nausea and vomiting) Qty: 14 0RF Date of admission: 08/23/23 11:21 Primary Care Provider: UNKNOWN,DOCTOR Admitting Provider: Isi Ring Attending physician on admission: Isi Ring Condition: Stable
[2023-08-24 14:10] VITALS: BP 127/94; PULSE 71; RESP 18; TEMP 36.8; O2SAT 100
[2023-08-24 18:30] VITALS: BP 149/97; PULSE 86; RESP 20; TEMP 37.5; O2SAT 100
[2023-08-24 19:43] LABS: Alanine Aminotransferase 32 U/L (6-35); Albumin Level 4.2 g/dL (3.5-5.1); Alkaline Phosphatase 49 U/L (38-126); Anion Gap 8 mmol/L (4-12); Aspartate Amino Transferase 34 U/L (14-36); Bilirubin,Total 0.6 mg/dL (0.2-1.3); Blood Urea Nitrogen 12 mg/dL (7-17); Calcium 8.6 mg/dL (8.4-10.2); Carbon Dioxide 26 mmol/L (22-30); Chloride 102 mmol/L (98-107); Estimated CRCL calculation 96 ml/min; Estimated Glomerular Filt Rate > 60; Glucose 113 mg/dL (65-110); Lipase 72 U/L (23-300); Potassium 3.6 mmol/L (3.4-5.0); Sodium 136 mmol/L (137-145)
[2023-08-24] MEDS: SIMETHICONE 125 MG CHEW TAB PO (20:31)
[2023-08-24] MEDS: PANTOPRAZOLE SODIUM IV 40 MG VIAL IV PUSH (20:31)
[2023-08-24 21:29] VITALS: BP 138/90; PULSE 71; RESP 13; TEMP 37.3; O2SAT 100
[2023-08-25 06:00] VITALS: BP 136/79; PULSE 70; RESP 12; TEMP 36.4; O2SAT 96
[2023-08-25] MEDS: ACETAMINOPHEN 325 MG TABLET 650 MG PO ×2 (07:44→14:47)
[2023-08-25] MEDS: PANTOPRAZOLE SODIUM IV 40 MG VIAL IV PUSH (07:45)
[2023-08-25 08:14] LABS: Basophils Percent Auto 0.1 % (0.2-1.2); Hematocrit 34.6 % (37.0-47.0); Hemoglobin 11.6 g/dL (12.0-15.0); Immature Granulocyte Absolute 0.03 K/mm3 (0.00-0.031); Immature Granulocyte Percent A 0.3 % (0-0.5); Lymphocytes Absolute Auto 1.52 K/mm3 (0.9-3.2); Lymphocytes Percent Auto 15.3 % (18.3-44.2); Mean Corpuscular HGB Conc 33.5 g/dl (32-36); Mean Corpuscular Hemoglobin 29.7 pg (26-34); Mean Corpuscular Volume 88.5 fl (80-100); Mean Platelet Volume 9.8 fl (7.4-10.4); Monocytes Absolute Auto 0.9 K/mm3 (0.1-0.6); Monocytes Percent Auto 9.4 % (2.6-8.5); Neutrophils Absolute Auto 7.5 K/mm3 (1.3-6.7); Neutrophils Percent Auto 74.9 % (45.5-73.1); Platelet Count Result 246 k/mm3 (150-375); Red Blood Count 3.91 M/mm3 (4.2-5.4); Red Cell Distribution Width 12.2 % (11.5-14.5); White Blood Count 9.9 K/mm3 (4.5-10.0)
[2023-08-25 08:20] LABS: Anion Gap 13 mmol/L (4-12); Blood Urea Nitrogen 8 mg/dL (7-17); Calcium 8.6 mg/dL (8.4-10.2); Carbon Dioxide 21 mmol/L (22-30); Chloride 103 mmol/L (98-107); Estimated CRCL calculation 121 ml/min; Estimated Glomerular Filt Rate > 60; Glucose 102 mg/dL (65-110); Potassium 3.4 mmol/L (3.4-5.0); Sodium 137 mmol/L (137-145)
[2023-08-25 08:39] VITALS: O2SAT 97
[2023-08-25] MEDS: SIMETHICONE 125 MG CHEW TAB PO ×2 (10:48→20:22)
[2023-08-25 14:00] VITALS: BP 114/99; PULSE 78; RESP 16; O2SAT 100
[2023-08-25 14:47] VITALS: TEMP 38.8
[2023-08-25] MEDS: HYDROcodone/acetaminophen (*CRX) 5-325 MG TABLET 1 TAB PO ×2 (14:47→21:15)
[2023-08-25 15:47] VITALS: TEMP 37.1
--- NOTE | 2023-08-25 16:18 | PM.IMPN ---
Progress Note: A&P Assessment and Plan (1) Pyelonephritis: Code(s): N12 - Tubulo-interstitial nephritis, not specified as acute or chronic Status: Acute Assessment and Plan: Culture negative but remains febrile Continue ceftriaxone and monitor temp 08/24 advance to regular diet (2) Kidney stone on left side: Code(s): N20.0 - Calculus of kidney Status: Acute Assessment and Plan: S/p left ureteral stent 08/22 RUQ Abd u/s with NL CBD Subjective Date/time seen: 08/25/23 16:18 Interval history: Continues with left flank pain. Sweats. No chills or rigors. Denied antibx use prior to admission. Denied CP or sob. Denied other GI/ issues. Exam Narrative: HEENT: PERRL, sclerae nonicteric, pharyngeal mucosa pink and intact NECK: No JVD CHEST: Clear to auscultation. Normal effort. HEART: NL S1/S2, regular, no murmur ABDOMEN: BS+, soft, TENDER LEFT FLANK TO LLQ W/O GUARDING OR REBOUND, no mass, no bruits EXTREMITIES: No cyanosis, edema, or clubbing NEUROLOGIC: CN intact and symmetric to inspection. MUSCULOSKELETAL: Tone and strength symmetric. PSYCH: Alert. Oriented to person, place, and time. Objective Data Vital Signs Vital Signs: Vital Signs - 24 hr 08/24/23 18:30 08/24/23 21:29 08/24/23 20:00 Temperature 99.5 F 99.1 F Pulse Rate 86 71 Respiratory Rate 20 13 Blood Pressure 149/97 H 138/90 Pulse Oximetry 100 100 Oxygen Delivery Room Air Room Air Fraction of Inspired Oxygen 08/25/23 06:00 08/25/23 08:39 08/25/23 08:00 Temperature 97.6 F Pulse Rate 70 Respiratory Rate 12 Blood Pressure 136/79 Pulse Oximetry 96 97 Oxygen Delivery Room Air Room Air Fraction of Inspired Oxygen 08/25/23 14:00 08/25/23 14:47 Temperature 102 F H Pulse Rate 78 Respiratory Rate 16 Blood Pressure 114/99 H Pulse Oximetry 100 Oxygen Delivery Fraction of Inspired Oxygen Intake/Output Intake/Output: Intake & Output 08/22/23 08/23/23 08/24/23 08/25/23 23:59 23:59 23:59 23:59 Intake Total 2123.3 2118 500 Output Total 800 Balance 1323.3 2118 500 Meds/Results Medications: Active Medications Generic Name Dose Route Start Last Admin Trade Name Freq PRN Reason Stop Dose Admin Acetaminophen 650 mg 08/23/23 15:21 08/25/23 14:47 Acetaminophen 325 Mg Tablet PO 650 mg Q4H PRN Administration Mild Pain (1-3) or Fever Hydrocodone Bitart/Acetaminophen 1 tab 08/23/23 15:21 08/25/23 14:47 Hydrocodone/Acetaminophen (*Crx) 5-325 Mg Tablet PO 1 tab Q4H PRN Administration Moderate Pain (4-6) Calcium Carbonate 200 mg 08/24/23 18:48 Calcium Carbonate (Tums) 500 Mg (200 Mg Elemental) PO Q6H PRN Indigestion Fentanyl Citrate 25 mcg 08/23/23 13:55 Fentanyl Citrate Inj (*Crx) 100 Mcg/2 Ml Vial IV PUSH Q2M PRN Pain Hydromorphone HCl 0.5 mg 08/23/23 11:21 Hydromorphone Hcl Inj (*Crx) 1 Mg/Ml Syr IV PUSH Q4H PRN Pain Rated 7-10 Ceftriaxone Sodium 1 gm in 50 mls @ 100 mls/hr 08/23/23 11:00 08/25/23 10:44 Rocephin 1 Gm/Ns 50 Ml IVPB 100 mls/hr Q24H URBANO Administration Morphine Sulfate 2 mg 08/23/23 15:21 Morphine Sulfate (*Crx) 2 Mg/Ml Inj IV PUSH Q4H PRN Pain Rated 7-10 Ondansetron HCl 4 mg 08/23/23 11:21 08/24/23 00:15 Ondansetron Inj 4 Mg/2 Ml Vial IV PUSH 4 mg Q4H PRN Administration Nausea Ondansetron HCl 4 mg 08/23/23 13:55 Ondansetron Inj 4 Mg/2 Ml Vial IV PUSH ONCE PRN Nausea Pantoprazole Sodium 40 mg 08/24/23 19:15 08/25/23 07:45 Pantoprazole Sodium Iv 40 Mg Vial IV PUSH 40 mg QAM URBANO Administration Simethicone 125 mg 08/24/23 18:49 08/25/23 10:48 Simethicone 125 Mg Chew Tab PO 125 mg QID PRN Administration Gas Discomfort Radiology Results: ITS Impressions Abdomen/Pelvis CT 08/23/23 10:13 IMPRESSION: 1. Bilateral nephrolithiasis with a pair of obstructing 2-[address]
[2023-08-25 20:59] VITALS: BP 118/75; PULSE 66; RESP 12; TEMP 36.7; O2SAT 99
[2023-08-26] MEDS: SIMETHICONE 125 MG CHEW TAB PO (05:47)
[2023-08-26] MEDS: HYDROcodone/acetaminophen (*CRX) 5-325 MG TABLET 1 TAB PO (05:47)
[2023-08-26 06:00] VITALS: BP 151/90; PULSE 74; RESP 14; TEMP 36.8; O2SAT 97
[2023-08-26 07:05] LABS: Anion Gap 10 mmol/L (4-12); Blood Urea Nitrogen 9 mg/dL (7-17); Calcium 8.7 mg/dL (8.4-10.2); Carbon Dioxide 26 mmol/L (22-30); Chloride 101 mmol/L (98-107); Estimated CRCL calculation 121 ml/min; Estimated Glomerular Filt Rate > 60; Glucose 106 mg/dL (65-110); Potassium 3.6 mmol/L (3.4-5.0); Sodium 137 mmol/L (137-145)
[2023-08-26 07:11] LABS: Basophils Percent Auto 0.3 % (0.2-1.2); Eosinophils Percent Auto 0.4 % (0-4.4); Hematocrit 36.1 % (37.0-47.0); Hemoglobin 11.9 g/dL (12.0-15.0); Immature Granulocyte Absolute 0.03 K/mm3 (0.00-0.031); Immature Granulocyte Percent A 0.4 % (0-0.5); Lymphocytes Absolute Auto 1.69 K/mm3 (0.9-3.2); Lymphocytes Percent Auto 21.9 % (18.3-44.2); Mean Corpuscular Hemoglobin 29.8 pg (26-34); Mean Corpuscular Volume 90.3 fl (80-100); Mean Platelet Volume 10.3 fl (7.4-10.4); Monocytes Absolute Auto 0.8 K/mm3 (0.1-0.6); Neutrophils Absolute Auto 5.2 K/mm3 (1.3-6.7); Platelet Count Result 227 k/mm3 (150-375); White Blood Count 7.7 K/mm3 (4.5-10.0)
[2023-08-26 08:30] VITALS: TEMP 37.2
[2023-08-26] MEDS: PANTOPRAZOLE SODIUM IV 40 MG VIAL IV PUSH (08:30)
--- NOTE | 2023-08-26 09:45 | PM.DS ---
DS: Admitting Diagnosis Discharge Date 08/26/2023 Admitting Diagnosis Left ureteral thigh assists with hydronephrosis and acute pyelonephritis DS: Discharge Diagnosis Discharge Diagnosis (1) Pyelonephritis: Code(s): N12 - Tubulo-interstitial nephritis, not specified as acute or chronic Status: Acute Assessment and Plan: Culture negative but remained febrile through 08/24, afebrile 08/25 08/24 advanced to regular diet 08/25 transition from ceftriaxone to Bactrim DS (2) Kidney stone on left side: Code(s): N20.0 - Calculus of kidney Status: Acute Assessment and Plan: S/p left ureteral stent 08/22 RUQ Abd u/s with NL CBD F/u with urology for stent removal DS: Summary Hospital Course Reason for hospitalization: Left flank pain and fever Hospital Course: Admitted 08/22 due to acute left flank fever. CT showed left ureteral stone with hydronephrosis. Underwent left ureteral stent placement by Urology 08/24. Treated with ceftriaxone since admission. Tolerated diet 08/24. Was up and about performing ADLs independently. Afebrile. Feeling much better with minimal pain. Wished to go home. Was to remain off work 08/22 through 09/01 and April 18. 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 Time Spent with Patient Time attestation: Total time spent providing and/or coordinating discharge services: Exam Narrative: HEENT: PERRL, sclerae nonicteric, pharyngeal mucosa pink and intact NECK: No JVD CHEST: Clear to auscultation. Normal effort. HEART: NL S1/S2, regular, no murmur ABDOMEN: BS+, soft, TENDER LEFT FLANK TO LLQ W/O GUARDING OR REBOUND, no mass, no bruits EXTREMITIES: No cyanosis, edema, or clubbing NEUROLOGIC: CN intact and symmetric to inspection. MUSCULOSKELETAL: Tone and strength symmetric. PSYCH: Alert. Oriented to person, place, and time. DS: Data Data Completed and Pending Pending studies at discharge: Pending at discharge 08/23/23 14:45 Surgical [PTH] Routine Labs on day of discharge: Labs from last 24 hours 08/26/23 05:52 WBC 7.7 RBC 4.00 L Hgb 11.9 L Hct 36.1 L MCV 90.3 MCH 29.8 MCHC 33.0 RDW 12.0 Plt Count 227 MPV 10.3 Immature Gran % (Auto) 0.4 Neut % (Auto) 67.0 Lymph % (Auto) 21.9 [place] % (Auto) 10.0 H Eos % (Auto) 0.4 Baso % (Auto) 0.3 Lymph # (Auto) 1.69 [place] # (Auto) 0.8 H Eos # (Auto) 0.0 Baso # (Auto) 0.0 Abs Immat Gran (auto) 0.03 Absolute Neuts (auto) 5.2 Absolute Nucleated RBC 0.000 Nucleated RBC % 0.0 Sodium 137 Potassium 3.6 Chloride 101 Carbon Dioxide 26 Anion Gap 10 BUN 9 Creatinine 0.70 Estim Creat Clear Calc 121 Estimated GFR > 60 Glucose 106 Calcium 8.7 Discharge Plan Discharge Attending physician on discharge: Isi Ring Consulting providers: Bryn Grier Discharging Clinician: Linh Carreon Patient Disposition: Home, Self-Care Activity: as tolerated Diet: regular Discharge Instructions: patient to follow up with her urologist in 2 weeks, patient to follow up with her primary care provider as soon as possible, patient is instructed if any symptoms redevelop or worsen to go nearest ER. Patient Instructions: Antibiotic Form Stand Alone Forms: General Discharge Information Follow-up/Referrals: Otto Hopkins MD [Physician] - (call for appt to establish pcp) Bryn Grier MD [Physician] - UNKNOWN,DOCTOR [Primary Care Provider] - Discharge Medications: New hydrocodone-acetaminophen 5-325 mg Tablet 1 tablet PO Q4H PRN (Reason: Moderate Pain (4-6)) Qty: 10 0RF sulfamethoxazole-trimethoprim [Bactrim DS] 800-160 mg tablet 1 tablet PO Q12H Qty: 10 0RF Date of admission: 08/25/23 18:49 Primary Care Provider: UNKNOWN,DOCTOR Admitting Provider: Isi Ring Attending physician on admission: Isi Ring Condition: Stable
--- NOTE | 2023-08-27 07:59 | PC.NURSE ---
Urine cx shows mixed genital luz.
--- NOTE | 2023-09-06 21:18 | WPDPN ---
Progress Note: A&P Assessment and Plan (1) Pyelonephritis: Code(s): N12 - Tubulo-interstitial nephritis, not specified as acute or chronic Status: Acute (2) Kidney stone on left side: Code(s): N20.0 - Calculus of kidney Status: Acute Plan Interval History 08/24/2023 this morning patient stats feeling lot better and pain is controlled, will continue antibiotics and pain medication, will follow up on urine culture, patient will be seen by her urologist and further recommendation to follow. Subjective Date/time seen: 08/24/23 21:18 Interval history: Chief Complaint: Left flank pain, nausea, vomiting Narrative: This is a 28-year-old female with no significant past medical history who presented to the hospital with left flank pain radiating to left lower quadrant of the abdomen with associated nausea and vomiting. Workup in the hospital includes CT of the abdomen pelvis with contrast showed bilateral nephrolithiasis with a pair of obstructing 2-3 mm stones at the left ureterovesical junction with mild left hydronephrosis, nonspecific periportal edema likely representing acute pyelonephritis. Initial labs were essentially unremarkable. A UA was obtained and showed 1+ urine protein, 3+ urine blood, 1+ leukocyte, 21-50 urine WBC, 3+ bacteria. Urine culture was obtained and is pending. She was given 1 L normal saline, morphine, Zofran, Dilaudid, Flomax while in the ED. she was also started on Rocephin. Urology was consulted and took patient to the OR for left ureteral stent placement. At the time of my exam, she is on the floor after being received from the PACU. Patient states that her symptoms started in the middle of the night and she stated that she had a bout of diarrhea which she attributed to possible food poisoning. She states she fell back asleep after the diarrhea and then woke up around 7 this morning in excruciating pain in her left flank with associated nausea and vomiting. She states that the pain was so bad that she blacked out for a few minutes and her called 911 and she was transported to the hospital via EMS. Patient denies any fever, chills, nausea, vomiting, diarrhea, abdominal pain, chest pain, shortness a breath. Patient states pain is well controlled after her procedure. Interval History 08/24/2023 this morning patient stats feeling lot better and pain is controlled, will continue antibiotics and pain medication, will follow up on urine culture, patient will be seen by her urologist and further recommendation to follow. Exam Narrative: Patient is comfortable, NAD HEENT: eyes are clear and none icteric LUNGS:CTA HEART: RR S1S2 ABD: BS+, Soft and nontender Lower extremities: no edema SKIN: nonjaundiced Neuro: grossly intact. Objective Data Meds/Results Radiology Results: ITS Impressions Abdomen/Pelvis CT 08/23/23 10:13 IMPRESSION: 1. Bilateral nephrolithiasis with a pair of obstructing 2-3 mm stones at the left ureterovesicular junction with mild left hydronephrosis, small amount of perinephric fluid and delayed left nephrogram. 2. Nonspecific periportal edema the differential for which includes acute pyelonephritis which while not evident by CT imaging could be developing related to ascending urinary tract infection associated with the left hydroureteronephrosis. Correlate with urinalysis. Other causes for periportal edema would include congestive heart failure, acute hepatitis, cholangitis or aggressive fluid resuscitation. Ureter Stent X-Ray 08/23/23 14:49 IMPRESSION: 1. Left internal ureteral stent placement. Please refer to real-time procedural findings for details. Abdomen X-Ray 08/24/23 19:10 IMPRESSION: 1. Normal bowel gas pattern. 2. Left internal ureteral stent in expected position. Abdomen Ultrasound 08/25/23 07:46 IMPRESSION: 1. Dilation of the common bile duct to 13 mm but without evident cholelithiasis/choledocholithiasis. Co
== END 2023-08-26 11:33 | disposition home or self-care (01) | DRG 446 ==
LOC: ANHED 11:03 → ANH3MEDSUR 11:48
PROVIDERS: Internal Medicine; Urology; Admitting Provider Hospitalist; Emergency Provider Emergency Medicine; Visit Provider Internal Medicine
PROC: 0T778DZ Dilation of Left Ureter with Intraluminal Device, Via Natural or Artificial Opening Endoscopic (ICD-10-PCS; CPT 52352; principal; 2023-08-23 14:45)
DX: N13.6 Pyonephrosis (principal); E66.9 Obesity, unspecified; Z68.38 Body mass index [BMI] 38.0-38.9, adult
CPT/HCPCS: 36415; 74018; 74177; 76705; 80048; 80053; 81001; 81025; 82365; 83690; 85025; 87086; 88300; 96361; 96365; 96375; 99285; A9270; C1769; C2617; G0378; G0379; J0696; J1100; J1170; J1885; J2250; J2270; J2405; J2470; J2704; J3010; J7030; J7120; Q9967

== ENCOUNTER 2023-10-05 10:45 | Outpatient (CLI) | payer OTHER, SELFPAY ==
--- NOTE | ~2023-10-05 | US_ITS ---
EXAMINATION: US retroperitoneal comp DATE: 10/05/2023 11:30 INDICATION: Left ureteral stone. TECHNIQUE: Multiple ultrasound grayscale images of the kidneys were obtained. COMPARISON: CT abdomen and pelvis 08/23/2023 FINDINGS: The right kidney measures 10.8 x 4.9 x 5.6 cm. The left kidney measures 10.6 x 4.8 x 6.2 cm. The kidn eys demonstrate normal parenchymal echogenicity. There is no hydronephrosis. The bladder is normal. IMPRESSION: 1. Normal kidneys. No hydronephrosis. Reviewed, dictated and finalized at location A.
== END 2023-10-05 10:46 | disposition home or self-care (01) ==
PROVIDERS: Visit Provider Urology
DX: N20.1 Calculus of ureter (principal)
CPT/HCPCS: 76770

== ENCOUNTER 2023-12-19 10:38 | Emergency (ER) | payer OTHER, SELFPAY ==
--- NOTE | ~2023-12-19 | US_ITS ---
FIRST TRIMESTER ULTRASOUND 12/19/2023 12:15 [employer] Ordering provider: Cecile Martinez MD History: . flank pain . Comparison: None. FINDINGS: INTRAUTERINE GESTATIONAL SAC: Present. POLE: Present. Measures 1.2 cm equal to 7 weeks and 2 days. DEVIN is August 04, 2024. heart rate is 147 bpm. UTERUS: The uterus measures 11.9x 6.4x 8.2 in length which is within normal limits. No myometrial mas ses. FREE FLUID: None. OVARIES: the right is not visualized. and the left measuring 3.5x 1.8x 2.2 cm. Doppler flow is demons trated within the right ovary. ADNEXAL MASSES: None. IMPRESSION: Intrauterine . FHR 147 bpm. pole Measures 1.2 cm equal to 7 weeks and 2 days. DEVIN is August 04, 2024. Reviewed, dictated and finalized at location A. [employer]
[2023-12-19 10:57] VITALS: BP 140/78; PULSE 70; RESP 18; TEMP 36.4; O2SAT 100
--- NOTE | 2023-12-19 11:22 | PC.NURSE ---
Pt. states that she needs proof of for her insurance. Serum hcg added to blood test per pt request.
[2023-12-19 11:36] LABS: Basophils Percent Auto 0.3 % (0.2-1.2); Eosinophils Absolute Auto 0.1 K/mm3 (0-0.3); Eosinophils Percent Auto 1.1 % (0-4.4); Hematocrit 39.4 % (37.0-47.0); Hemoglobin 13.5 g/dL (12.0-15.0); Immature Granulocyte Absolute 0.03 K/mm3 (0.00-0.031); Immature Granulocyte Percent A 0.3 % (0-0.5); Lymphocytes Absolute Auto 2.03 K/mm3 (0.9-3.2); Lymphocytes Percent Auto 20.5 % (18.3-44.2); Mean Corpuscular HGB Conc 34.3 g/dl (32-36); Mean Corpuscular Hemoglobin 29.9 pg (26-34); Mean Corpuscular Volume 87.4 fl (80-100); Mean Platelet Volume 9.1 fl (7.4-10.4); Monocytes Absolute Auto 0.6 K/mm3 (0.1-0.6); Monocytes Percent Auto 5.6 % (2.6-8.5); Neutrophils Absolute Auto 7.2 K/mm3 (1.3-6.7); Neutrophils Percent Auto 72.2 % (45.5-73.1); Platelet Count Result 329 k/mm3 (150-375); Red Blood Count 4.51 M/mm3 (4.2-5.4); Red Cell Distribution Width 12.2 % (11.5-14.5); White Blood Count 9.9 K/mm3 (4.5-10.0)
[2023-12-19 11:40] LABS: Add Urine Microscopic? YES; Appearance Urine Clear (Clear); Bacteria Urine None Seen /hpf; Bilirubin Urine Negative (Negative); Blood Urine Negative (Negative); Color Urine Yellow (Yellow); Glucose Urine UA Negative (Negative); Ketones Urine Trace mg/dL (Negative); Leukocyte Esterase Ur 1+ LEU/UL (Negative); Nitrate Urine Negative (Negative); Non Pathogenic Casts 0-2; Protein Urine Trace mg/dL (Negative); RBC Urine 0-2 /hpf (0-2); Specific Grav Ur 1.027 (1.001-1.035); Squamous Epithelial Cell Urine Occasional /hpf (Few)
[2023-12-19 11:47] LABS: Alanine Aminotransferase 32 U/L (6-35); Albumin Level 4.3 g/dL (3.5-5.1); Alkaline Phosphatase 57 U/L (38-126); Anion Gap 9 mmol/L (4-12); Aspartate Amino Transferase 25 U/L (14-36); Bilirubin,Total 0.3 mg/dL (0.2-1.3); Blood Urea Nitrogen 11 mg/dL (7-17); Calcium 9.2 mg/dL (8.4-10.2); Carbon Dioxide 25 mmol/L (22-30); Chloride 102 mmol/L (98-107); Estimated CRCL calculation 131 ml/min; Estimated Glomerular Filt Rate > 60; Glucose 95 mg/dL (65-110); Lipase 32 U/L (23-300); Potassium 3.6 mmol/L (3.4-5.0); Sodium 136 mmol/L (137-145)
[2023-12-19] MEDS: METOCLOPRAMIDE HCL INJ 10 MG/2 ML VIAL IV PUSH (12:03)
--- NOTE | 2023-12-19 13:14 | PC.NURSE ---
Pt. reports that since Reglan administration her nausea is much better.
--- NOTE | 2023-12-19 13:59 | ED_ITS ---
HPI - Abdominal Pain General Chief Complaint: Abdominal Pain Stated Complaint: right side pain-history of kidney stones Time Seen by Provider: 12/19/23 11:21 History of Present Illness HPI narrative: Patient with LMP about 2 months ago presents with some discomfort to her flank, she has had history of kidney stones in the past but this does not feel as that. She has also Taken a positive test at home. also having nausea vomiting. No vaginal discharge or bleeding Related Data Allergies Allergy/AdvReac Type Severity Reaction Status Date / Time latex Allergy Itching Verified 12/19/23 12:03 Review of Systems Review of Systems: All systems reviewed & are unremarkable except as noted in HPI and below PMFSH Social History Social History (Updated 08/23/23 @ 16:55 by Tuyet Christianson, ATHLETIC EVENTS SCORER) Social History: Has 2 kids Lives with Smoking status: Never smoker Alcohol intake: former Drinks per week: 1 Substance use: never Substance use type: marijuana Do You Feel Safe in your Home?: Yes Lack of Transportation: No Lack of Food: Never True Current Housing: I Have Housing Concerned About Future Housing: No Difficulty Paying Gas/Electric Bills: No Difficulty Paying for Meds: No Currently Unemployed: No Education: Don't Know Difficulty w/ Childcare or Family Care: No Spiritual care concerns: No Exam Narrative: EXAMINATION OF ORGAN SYSTEMS/BODY AREAS: Constitutional: Vital signs per nursing GENERAL:[No acute distress, non-toxic appearing.] HEAD: Normal with no signs of head trauma. EYES: EOMI, conjunctiva normal ENT: Hearing grossly intact LUNGS: Nonlabored breathing. HEART: [Regular rate and rhythm] ABD: [Soft], [nontender to palpation] EXT: Normal range of motion SKIN: [No rashes or lesions.] NEURO: [Alert and oriented x 3. No gross focal sensory or strength deficits.] PSYCH: Normal affect Course Vital Signs Vital signs: Vital Signs Temperature 97.6 F 12/19/23 10:57 Pulse Rate 70 12/19/23 10:57 Respiratory Rate 18 12/19/23 10:57 Blood Pressure 140/78 12/19/23 10:57 Pulse Oximetry 100 12/19/23 10:57 Oxygen Delivery Room Air 12/19/23 10:57 Temperature 97.6 F 12/19/23 10:57 Pulse Rate 75 12/19/23 14:15 Respiratory Rate 16 12/19/23 14:15 Blood Pressure 138/76 12/19/23 14:15 Pulse Oximetry 97 12/19/23 14:15 Oxygen Delivery Room Air 12/19/23 10:57 MDM - Abdominal Pain MDM Narrative Medical decision making narrative: patient presenting with nausea, vomiting, some left flank pain; she is pregn ant, Is treated here for nausea with Reglan, ultrasound here confirms IUP with normal heart rate. Labs do show UTI, as she is I will put her on antibiotics. She already has an OB to follow-up with, and I will put her on prenatals given nausea medicine. patient agreeable to this plan. She is very well-appearing at time of discharge, symptoms completely resolved. Return precautions provided. Lab Data 12/19/23 11:28 12/19/23 11:28 Labs: Lab Results 12/19/23 12/19/23 Range/Units 11:28 11:31 WBC 9.9 (4.5-10.0) K/mm3 RBC 4.51 (4.2-5.4) M/mm3 Hgb 13.5 (12.0-15.0) g/dL Hct 39.4 (37.0-47.0) % MCV 87.4 (80-100) fl MCH 29.9 (26-34) pg MCHC 34.3 (32-36) g/dl RDW 12.2 (11.5-14.5) % Plt Count 329 (150-375) k/mm3 MPV 9.1 (7.4-10.4) fl Immature Gran % (Auto) 0.3 (0-0.5) % Neut % (Auto) 72.2 (45.5-73.1) % Lymph % (Auto) 20.5 (18.3-44.2) % [place] % (Auto) 5.6 (2.6-8.5) % Eos % (Auto) 1.1 (0-4.4) % Baso % (Auto) 0.3 (0.2-1.2) % Lymph # (Auto) 2.03 (0.9-3.2) K/mm3 [place] # (Auto) 0.6 (0.1-0.6) K/mm3 Eos # (Auto) 0.1 (0-0.3) K/mm3 Baso # (Auto) 0.0 (0.0-0.1) K/mm3 Abs Immat Gran (auto) 0.03 (0.00-0.031) K/mm3 Absolute Neuts (auto) 7.2 H (1.3-6.7) K/mm3 Absolute Nucleated RBC 0.000 (0.0-0.012) K/mm3 Nucleated RBC % 0.0 (0.0-0.2) % Sodium 136 L (137-145) mmol/L Potassium 3.6 (3.4-5.0) mmol/L Chloride 102 (98-107) mmol/L Carbon Dioxide 25 (22-30) mmol/L Anion Gap 9 (4-12) mmol/L BUN 11 (7-17) mg/dL Creatinine 0.70 (0.7-1.0) mg/dL Estim Creat Clear Calc 131 ml/min Estimated GFR > 60 (59 - ) Glucose 95 (65-110) mg/dL Calcium 9.2 (8.4-10.2) mg/dL Total Bilirubin 0.3 (0.2-1.3) mg/dL AST 25 (14-36) U/L ALT 32 (6-35) U/L Alkaline Phosphatase 57 (38-126) U/L Total Protein 8.0 (6.3-8.2) g/dL Albumin 4.3 (3.5-5.1) g/dL Lipase 32 (23-300) U/L Beta HCG, Quant 28308.00 mIU/ML Urine Color Yellow (Yellow) Urine Appearance Clear (Clear) Urine pH 6.0 (5.0-9.0) Ur Specific [place] 1.027 (1.001-1.035) Urine Protein Trace (Negative) mg/dL Urine Glucose (UA) Negative (Negative) mg/dL Urine Ketones Trace H (Negative) mg/dL Ur Blood (Man) Negative (Negative) Urine Nitrate Negative (Negative) Urine Bilirubin Negative (Negative) Urine Urobilinogen 1.0 (<2.0) mg/dL Leukocyte Esterase Rfl 1+ H (Negative) ALEN/UL Urine RBC 0-2 (0-2) /hpf Urine WBC 11-20 H (0-3) /hpf Ur Squamous Epith Cells Occasional (Few) /hpf Urine Bacteria None seen /hpf Urine Casts 0-2 Imaging Data Radiologist's impression: ITS Impressions Ultrasound 12/19/23 13:53 IMPRESSION: Intrauterine . FHR 147 bpm. pole Measures 1.2 cm equal to 7 weeks and 2 days. DEVIN is August 04, 2024. Discharge Plan Discharge Clinical Impression: Pyelonephritis, , Nausea Patient Disposition: Home, Self-Care Condition: Stable Instructions: Urinary Tract Infection in (ED) Additional Instructions: please follow-up with your OB in the next few days, take the medications as prescribed, and come back to the ER immediately if you have worsening symptoms including difficulty keeping things down, increasing pain, fevers or chills, or anything else concerning. Prescriptions: New cefdinir 300 mg capsule 300 mg PO Q12H Qty: 14 0RF metoclopramide HCl [Reglan] 10 mg tablet 10 mg PO Q6H PRN (Reason: nausea and vomiting) Qty: 14 0RF PNV #[id number] 30 mg iron-10 mg iron-1 mg capsule 1 cap PO DAILY 30 Days Qty: 30 0RF No Action hydrocodone-acetaminophen 5-325 mg Tablet 1 tablet PO Q4H PRN (Reason: Moderate Pain (4-6)) Qty: 10 0RF sulfamethoxazole-trimethoprim [Bactrim DS] 800-160 mg tablet 1 tablet PO Q12H Qty: 10 0RF Follow-up/Referrals: UNKNOWN,DOCTOR [Primary Care Provider] -
[2023-12-19 14:15] VITALS: BP 138/76; PULSE 75; RESP 16; O2SAT 97
== END 2023-12-19 14:30 | disposition home or self-care (01) ==
PROVIDERS: Emergency Provider Emergency Medicine
DX: O23.01 Infections of kidney in pregnancy, first trimester (principal); O26.891 Other specified pregnancy related conditions, first trimester; R11.0 Nausea; Z87.442 Personal history of urinary calculi; Z3A.01 Less than 8 weeks gestation of pregnancy
CPT/HCPCS: 36415; 76801; 80053; 81001; 83690; 84702; 85025; 87086; 87186; 96365; 96375; 99284; J0696; J2765

== ENCOUNTER 2023-12-28 07:32 | Emergency (ER) | payer OTHER, SELFPAY ==
--- NOTE | ~2023-12-28 | XR_ITS ---
EXAMINATION: XR ankle LT min 3V DATE: 12/28/2023 08:01 INDICATION: Left ankle injury. TECHNIQUE: 4 views of left ankle were obtained. COMPARISON: None. FINDINGS: Alignment is normal. No fracture. Joint spaces are normal. IMPRESSION: 1. No fracture. Reviewed, dictated and finalized at location A. /WAN ENGINEER IMPRESSION: 1. No fracture.
[2023-12-28 07:37] VITALS: BP 141/85; PULSE 97; RESP 18; TEMP 36.6; O2SAT 100
--- NOTE | 2023-12-28 08:31 | ED.LOWEXIN ---
HPI - Extremity Injury (Lower) General Chief Complaint: Extremity Injury, Lower Stated Complaint: fall, L ankle pain Time Seen by Provider: 12/28/23 07:44 History of Present Illness HPI Narrative: Patient is a 28-year-old female who presents ER with left ankle pain. She twisted it this morning. She felt / heard a pop. She has pain with walking. Mild swelling over lateral aspect of the ankle. No numbness or tingling. Patient is 10 weeks . Related Data Allergies Allergy/AdvReac Type Severity Reaction Status Date / Time latex Allergy Itching Verified 12/28/23 07:53 Review of Systems Constitutional: Constitutional: Reports no additional constitutional complaints Musculoskeletal: Musculoskeletal: Reports arthralgias, Reports joint swelling and Denies muscle cramps Neurologic: Reports system reviewed and no additional complaints, except as documented PMFSH Past Medical History Medical History (Updated 12/28/23 @ 08:38 by Lion Andrew MD) Kidney stones Social History Social History (Updated 08/23/23 @ 16:55 by Tuyet Christianson APRN) Social History: Has 2 kids Lives with Smoking status: Never smoker Alcohol intake: former Drinks per week: 1 Substance use: never Substance use type: marijuana Do You Feel Safe in your Home?: Yes Lack of Transportation: No Lack of Food: Never True Current Housing: I Have Housing Concerned About Future Housing: No Difficulty Paying Gas/Electric Bills: No Difficulty Paying for Meds: No Currently Unemployed: No Education: Don't Know Difficulty w/ Childcare or Family Care: No Spiritual care concerns: No Exam Narrative: GENERAL: Well-appearing, well-nourished, and in no acute distress. HEAD: Normocephalic, atraumatic. ENT: Mucous membranes moist. EXTREMITIES: Normal range of motion. No edema. mild swelling anterior to the left lateral malleolus with tenderness in this area. No 5th metatarsal tenderness. No foot tenderness over the plantar aspect of the foot. SKIN: Warm, dry, no rash. NEURO: Alert and oriented x3. PSYCH: Normal mood and affect. Course Course Emergency Course: X-ray without fracture. Diagnosed with ankle sprain. Discussed treatment with rest /eyes/compression /elevation. She may take Tylenol for pain. Crutches provided. Will provide a work note. Vital Signs Vital signs: Vital Signs Temperature 97.9 F 12/28/23 07:37 Pulse Rate 97 12/28/23 07:37 Respiratory Rate 18 12/28/23 07:37 Blood Pressure 141/85 H 12/28/23 07:37 Pulse Oximetry 100 12/28/23 07:37 Temperature 97.9 F 12/28/23 07:37 Pulse Rate 97 12/28/23 07:37 Respiratory Rate 18 12/28/23 07:37 Blood Pressure 141/85 H 12/28/23 07:37 Pulse Oximetry 100 12/28/23 07:37 Discharge Plan Discharge Clinical Impression: Ankle sprain and strain Patient Disposition: Home, Self-Care Condition: Stable Instructions: Ankle Sprain (ED), P.R.I.C.E. Treatment (ED) Additional Instructions: Return ER if you suffer additional injury, you have chest pain shortness breath, or you have additional concerns. Bear weight as tolerated while using crutches. Follow up with your doctor. Take tylenol for pain. Prescriptions: No Action hydrocodone-acetaminophen 5-325 mg Tablet 1 tablet PO Q4H PRN (Reason: Moderate Pain (4-6)) Qty: 10 0RF sulfamethoxazole-trimethoprim [Bactrim DS] 800-160 mg tablet 1 tablet PO Q12H Qty: 10 0RF cefdinir 300 mg capsule 300 mg PO Q12H Qty: 14 0RF metoclopramide HCl [Reglan] 10 mg tablet 10 mg PO Q6H PRN (Reason: nausea and vomiting) Qty: 14 0RF PNV #[id number] acid-[id number] 30 mg iron-10 mg iron-1 mg capsule 1 cap PO DAILY 30 Days Qty: 30 0RF Follow-up/Referrals: Kg Fajardo MD [Physician] - 1 Week UNKNOWN,DOCTOR [Primary Care Provider] - Stand Alone Forms: Work/School Release IP
[2023-12-28 09:15] VITALS: BP 109/73; PULSE 77; RESP 16; TEMP 36.6; O2SAT 100
== END 2023-12-28 09:18 | disposition home or self-care (01) ==
PROVIDERS: Emergency Provider Emergency Medicine
DX: S93.402A Sprain of unspecified ligament of left ankle, initial encounter (principal); S96.912A Strain of unspecified muscle and tendon at ankle and foot level, left foot, initial encounter; Z87.442 Personal history of urinary calculi; X50.9XXA Other and unspecified overexertion or strenuous movements or postures, initial encounter
CPT/HCPCS: 73610; 99283